=== PATIENT | male | born 1990 | race American Indian/Alaskan Native ===

== ENCOUNTER 2020-04-02 12:22 | Emergency (ER) | payer SELFPAY ==
[2020-04-02] MEDS ORDERED: LORazepam 2 MG/ML VIAL IV ONE (12:55)
[2020-04-02] MEDS ORDERED: levETIRAcetam 1000 MG/NS 0.75% 1,000 MG/100 ML BAG IV ONE (12:55)
[2020-04-02] MEDS ORDERED: KETOROLAC 30 MG/1 ML INJ IV ONE (12:55)
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
[2020-04-02 13:40] LABS: Hematocrit 43.4 % (35.5-45.6); Mean Corpuscular HGB Conc 35 % (32-34); Mean Corpuscular Volume 87 fl (84-94); Platelet Count 180 K/mm3 (140-440); Red Blood Count 4.97 M/mm3 (3.65-5.03); Red Cell Distribution Width 13.5 % (13.2-15.2)
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
[2020-04-02 13:54] LABS: BUN/Creatinine Ratio 11; Blood Urea Nitrogen 11 mg/dL (9-20); Calcium 9.1 mg/dL (8.4-10.2); Hemolysis Index 93
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
[2020-04-02 15:02] LABS: Amphetamine Screen,Urine Negative; Benzodiazepines Screen,Urine Negative; Cocaine Screen,Urine Negative; Methadone Screen,Urine Negative; Opiate Screen,Urine Negative
[2020-04-02 15:08] LABS: Bilirubin,Urine NEG (Negative); Blood,Urine NEG (Negative); Color,Urine Yellow (Yellow); Mucus,Urine FEW /HPF; Protein,Urine <15 mg/dL mg/dL (Negative); Urobilinogen,Urine < 2.0 mg/dL (<2.0)
[2020-04-02 15:12] LABS: Total Cells Counted 100
[2020-04-02 15:13] LABS: Eosinophils % (Manual) 0 % (0.0-4.3)
[2020-04-02 15:16] LABS: Platelet Estimate Consistent w Auto; RBC Morphology Normal
[2020-04-02 15:19] LABS: Cannabinoid Screen,Urine Positive
[2020-04-02] MEDS ORDERED: AZITHROMYCIN 600 MG TAB PO ONE (15:29)
[2020-04-02 17:26] VITALS: BP 120/81
== END 2020-04-02 17:30 | disposition home or self-care (01) ==
LOC: ED 12:22
DX: S46.912A Strain of unspecified muscle, fascia and tendon at shoulder and upper arm level, left arm, initial encounter (principal); G40.909 Epilepsy, unspecified, not intractable, without status epilepticus; M79.18 Myalgia, other site; N34.2 Other urethritis; F41.9 Anxiety disorder, unspecified; F32.9 Major depressive disorder, single episode, unspecified; F17.200 Nicotine dependence, unspecified, uncomplicated; Z98.890 Other specified postprocedural states; Z79.899 Other long term (current) drug therapy; Y04.8XXA Assault by other bodily force, initial encounter; Y93.89 Activity, other specified; Y92.89 Other specified places as the place of occurrence of the external cause; Y99.8 Other external cause status
CPT/HCPCS: 36415; 70450; 71046; 72100; 72125; 73030; 80048; 80307; 81001; 82550; 83735; 85007; 85025; 96365; 96366; 96375; 99285; J0696; J1885; J1953; J2060; 80320; G0480